=== PATIENT | male | born 1995 | race Caucasian/White ===

== ENCOUNTER 2018-10-30 22:28 | Emergency (ER) | payer MEDICAID, OTHER ==
[2018-10-31] MEDS ORDERED: NS 0.9% 1000 ML** 1,000 ML IV ONE (01:20)
--- NOTE | 2018-10-31 01:21 | ED ---
GI/ HPI - HPI Summary HPI Summary: This pt is a 22 y/o M presenting to [facility] with a CC of abdominal pain described as cramping and having 2 BMs of bright red blood. He states that he had cramping before the 2nd BM in his RLQ. He denies any current pain. He also stated that he felt nauseas. The cramping at its most sever was rated a 3/10. He denies any fever, SOB, diaphoresis, headaches, and vomiting. He stated that when he had his 2nd BM the nausea and pain were alleviated. He had no pertinent PMHx. - History of Current Complaint Chief Complaint: EDGIBleed Time Seen by Provider: 10/31/18 00:57 Stated Complaint: CRAMPS,BLOOD IN STOOL PER PT Hx Obtained From: Patient Onset/Duration: Started Hours Ago, Resolved Timing: Intermittent Severity: Moderate Current Severity: Mild Vaginal Bleeding Description: Bright Red Pain Intensity: 3 Location of Pain: RLQ Pain Characteristics: Cramping Associated Signs and Symptoms: Positive: Negative - SOB, headaches, Nausea, Bright Red Blood w/Stool, Diarrhea, Abdominal Pain - RLQ. Negative: Hematemesis , Vomiting, Diaphoresis, Fever Aggravating Factor(s): Nothing Alleviating Factor(s): Bowel Movements - Allergy/Home Medications Allergies/Adverse Reactions: Allergies Allergy/AdvReac Type Severity Reaction Status Date / Time No Known Allergies Allergy Verified 10/30/18 22:34 Home Medications: Home Medications NK [No Home Medications Reported] 10/30/18 [History Confirmed 10/30/18] PMH/Surg Hx/FS Hx/Imm Hx Previously Healthy: Yes Endocrine/Hematology History: Denies: Hx Diabetes Cardiovascular History: Denies: Hx Hypertension Respiratory History: Denies: Hx Asthma Sensory History: Reports: Hx Contacts or Glasses Opthamlomology History: Reports: Hx Contacts or Glasses - Surgical History Surgical History: None Infectious Disease History: No Infectious Disease History: Denies: Traveled Outside the [place] in Last 30 Days - Family History Known Family History: Positive: Hypertension - maternal, Diabetes - mother - Social History Occupation: Employed Full-time Lives: With Family Alcohol Use: Occasionally Hx Substance Use: Yes Substance Use Type: Reports: Marijuana Hx Tobacco Use: Yes Smoking Status (MU): Former Smoker Review of Systems Negative: Fever, Skin Diaphoresis Negative: Chest Pain Negative: Shortness Of Breath Positive: Abdominal Pain - RLQ, Diarrhea, Nausea. Negative: Vomiting Genitourinary: Other - Bright red blood in stool Negative: Headache All Other Systems Reviewed And Are Negative: Yes Physical Exam - Summary Physical Exam Summary: VITAL SIGNS: Reviewed. GENERAL: Patient is a well-developed and nourished male who is lying comfortable in the stretcher. Patient is not in any acute respiratory distress. HEAD AND FACE: No signs of trauma. No ecchymosis, hematomas or skull depressions. No sinus tenderness. EYES: PERRLA, EOMI x 2, No injected conjunctiva, no nystagmus. EARS: Hearing grossly intact. Ear canals and tympanic membranes are within normal limits. MOUTH: Oropharynx within normal limits. NECK: Supple, trachea is midline, no adenopathy, no JVD, no carotid bruit, no c- spine tenderness, neck with full ROM CHEST: Symmetric, no tenderness at palpation LUNGS: Clear to auscultation bilaterally. No wheezing or crackles. CVS: Regular rate and rhythm, S1 and S2 present, no murmurs or gallops appreciated. ABDOMEN: Soft, non-tender. No signs of distention. No rebound no guarding, and no masses palpated. Bowel sounds are normal. No external hemorrhoids, no mases, no rectal tone, mild tinge of blood on examination finger. EXTREMITIES: FROM in all major joints, no edema, no cyanosis or clubbing. NEURO: Alert and oriented x 3. No acute neurological deficits. Speech is normal and follows commands. SKIN: Dry and warm Triage Information Reviewed: Yes Vital Signs On Initial Exam: Initial Vitals Temp Pulse Resp BP Pulse Ox 97.9 F 59 16 150/88 98 10/30/18 22:30 10/30/18 22:30 10/30/18 22:30 10/30/18 22:30 10/30/18 22:30 Vital Signs Reviewed: Yes Diagnostics - Vital Signs Vital Signs Temp Pulse Resp BP Pulse Ox 10/30/18 22:30 97.9 F 59 16 150/88 98 - Laboratory Result Diagrams: 10/31/18 01:34 10/31/18 01:34 Lab Statement: Any lab studies that have been ordered have been reviewed, and results considered in the medical decision making process. - CT CT A/P CT Interpretation Completed By: Radiologist Summary of CT Findings: no acute findings. ed physician has reviewed this report. GIGU Course/Dx - Course Course Of Treatment: This pt is a 22 y/o M presenting to [facility] with a CC of abdominal pain described as cramping and having 2 BMs of bright red blood. His PE found No external hemorrhoids, no mases, no rectal tone, mild tinge of blood on examination finger. His CT A/P found no acute findings. He had one abnormal lab value in his APTT. He will be discharged with a Dx of a GI bleed and instructed to follow up with GI in the morning and his PCP in 2-3 days. - Diagnoses Provider Diagnoses: GI bleed Discharge - Sign-Out/Discharge Documenting (check all that apply): Patient Departure - discharge Patient Received Moderate/Deep Sedation with Procedure: No - Discharge Plan Condition: Stable Disposition: HOME Patient Education Materials: Gastrointestinal Bleeding (ED) Referrals: [facility] [Outside] - 2 Days Rosangela Matta MD [Medical Doctor] - As Soon As Possible Additional Instructions: Please follow up with Dr. Matta, gastrointestinal, [facility] and also follow up with the [facility] in 2-3 days. Return to the emergency department for any new or worsening symptoms. - Attestation Statements Document Initiated by Scribe: Yes Documenting Scribe: Rony Escudero Provider For Whom Scribe is Documenting (Include Credential): Benny Fragoso MD Scribe Attestation: Rony Quezada, scribed for Benny Fragoso MD on 10/31/18 at 0348. Status of Scribe Document: Ready
[2018-10-31 01:44] LABS: ABS Eosinophils 0.2 10^3/ul (0-0.6); ABS Monocytes 0.6 10^3/ul (0-0.8); ABS Neutrophils 3.6 10^3/ul (1.5-7.7); Eosinophil % 2.4 %; Hematocrit 46 % (42-52); Hemoglobin 15.3 g/dL (14.0-18.0); Lymphocyte % 31.2 %; Mean Corpuscular HGB Conc 34 g/dL (31-36); Mean Corpuscular Hemoglobin 28 pg (27-31); Mean Corpuscular Volume 84 fL (80-94); Mean Platelet Volume 10.6 fL (7.4-10.4); Platelet Count 173 10^3/uL (150-450); Red Blood Count 5.41 10^6 /uL (4.18-5.48); Red Cell Distribution Width 14 % (10-15); White Blood Count 6.4 10^3/uL (3.5-10.8)
[2018-10-31 01:57] LABS: Activated Partial Thrombo Time 42.3 seconds (26.0-38.0); INR 0.99 (0.82-1.09)
[2018-10-31 02:00] LABS: ALT 13 U/L (7-52); AST 18 U/L (13-39); Albumin 4.6 g/dL (3.2-5.2); Albumin/Globulin Ratio 1.6 (1-3); Alkaline Phosphatase 71 U/L (34-104); Anion Gap 7 mmol/L (2-11); BUN/Creatinine Ratio 14.9 (8-20); Blood Urea Nitrogen 15 mg/dL (6-24); C Reactive Protein < 1.00 mg/L (<8.01); CO2 Carbon Dioxide 27 mmol/L (22-32); Calcium 9.5 mg/dL (8.6-10.3); Chloride 106 mmol/L (101-111); EGFR African American 112.8 (>60); EGFR Non-African American 93.2 (>60); Globulin 2.8 g/dL (2-4); Glucose 88 mg/dL (70-100); Magnesium 2.2 mg/dL (1.9-2.7); Potassium 3.9 mmol/L (3.5-5.0); Sodium 140 mmol/L (135-145); Total Protein 7.4 g/dL (6.4-8.9)
[2018-10-31] MEDS ORDERED: Iohexol 300* (CONTRAST) 10 ML SDV IV ONE (02:35)
[2018-10-31 04:08] VITALS: BP 121/72
== END 2018-10-31 04:09 | disposition home or self-care (01) ==
LOC: ED 22:28
DX: K92.2 Gastrointestinal hemorrhage, unspecified (principal); R10.32 Left lower quadrant pain; R19.7 Diarrhea, unspecified; Z87.891 Personal history of nicotine dependence
CPT/HCPCS: 36415; 74177; 80053; 82140; 83690; 83735; 85025; 85610; 85730; 86140; 96360; 99282; Q9967